=== PATIENT | male | born 1965 | race Caucasian/White ===

== ENCOUNTER 2020-02-28 09:11 | Emergency (ER) | payer BC ==
--- NOTE | 2020-02-28 09:51 | EDM.PDOC ---
ED HPI GENERAL MEDICAL PROBLEM - General Chief Complaint: Cardiovascular Problem Stated Complaint: CHEST PAIN OFF AND ON Time Seen by Provider: 02/28/20 09:43 Source of Information: Reports: Patient History Limitations: Reports: No Limitations - History of Present Illness INITIAL COMMENTS - FREE TEXT/NARRATIVE: 54-year-old male presents to the ED for evaluation of intermittent chest pains that he is been having off and on for the last couple of weeks. Last bout was about a week ago. It occurred at rest. Patient is very active in his job states he walks about 16,000 paces per day. At no time as he appreciated chest pressure discomfort with exertion. He reports having 95% occlusion of his left anterior descending coronary diagnosed coincidentally by cardiology at [place] 10 years ago. He therefore had 1 stent placed. He has a very strong family history of coronary artery disease. He states since that time he has been able to participate in all exercise programs including a Cross Fit program as well as running with his son when he gets home without development of chest discomfort. At the time he is seen in the ED he is not having any discomfort at all. Denies any shortness of breath or cough. No fever chills does be concerned for COVID illness. Currently working for [employer] here in [place]. ECG done by triage nurse shows sinus bradycardia at 54/min. Initial poor R wave progression giving some consideration to an old anteroseptal myocardial infarction. There is a diffuse early repolarization pattern. There is no signs of any ischemia. Patient reports he has been without his blood pressure medication for the last 7 to 10 days. His is sending it in the mail. He is unsure what it is. Onset Date: 02/14/20 (He said a few bouts of upper anterior chest pain at rest over the last 2 weeks.) Duration: Intermittent Location: Reports: Chest (Recurrent upper anterior chest pain at rest. History of coronary artery disease with 95% occlusion of left anterior descending artery requiring stent placement 10 years ago. No chest pains for at least 1 week.) Quality: Reports: Other (This pains are described as fleeting upper anterior chest lasting less than 3 minutes. They almost all occurred at rest.) Severity: Mild Improves with: Reports: Other (Chest pains always gone away on their own.) Worsens with: Reports: None Context: Reports: Other. Denies: Activity, Exercise, Lifting, Sick Contact, Trauma Associated Symptoms: Reports: No Other Symptoms (History of coronary disease.). 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 It is being sent per male by his . He hopes it will arrive on Sunday or Sunday next week. He cannot member what medication he takes for high blood pressure.), Stents (Patient had a stent placed 10 years ago in the left anterior descending coronary artery as it was 94% occluded. This was picked up as part of a screening exam for family history of coronary disease. He has not had a myocardial infarction) Gastrointestinal History: Reports: GERD (Occasional reflux and heartburn but quite rare.) Musculoskeletal History: Reports: Fracture (Cervical spine with fusion he believes at C6 and C7.), Neck Pain, Chronic (Mild.) Oncologic (Cancer) History: Reports: Thyroid (Discovered to have thyroid cancer coincidentally when he had CT scan of his cervical spine after injury. Initial needle biopsy was negative. However he was feeling a pressure on his windpipe when he exercised and therefore surgery was performed. During surgery pathology reported malignancy and therefore the entire thyroid gland was removed.) - Past Surgical History Endocrine Surgical History: Reports: Thyroidectomy (Found to have a cancer in his thyroid coincidentally when he had CT of his cervical spine after injury. Initial needle biopsies were negative. However during surgery discovered to have a cancer of the thyroid and the whole thyroid was then removed.) Neurological Surgical History: Reports: C-Spine (C-spine fusion he believes at C6 and C7 levels.) Social & Family History - Tobacco Use Smoking Status *Q: Former Smoker (Quit 20 years ago.) Tobacco Use Within Last Twelve Months: Cigarettes - Living Situation & Occupation Living situation: Reports: Occupation: Employed Social History Comment: Currently works for [employer] here in [place]. He is home is in [facility]. ED ROS GENERAL - Review of Systems Review Of Systems: See Below Constitutional: Denies: Fever, Chills, Malaise, Weakness, Fatigue, Decreased Appetite, Weight Loss HEENT: Reports: No Symptoms Respiratory: Denies: Shortness of Breath, Wheezing, Pleuritic Chest Pain, Cough Cardiovascular: Reports: Chest Pain (Remittent upper anterior central chest pains the last few weeks usually at rest.), Blood Pressure Problem. Denies: Claudication (Chronic hypertension), Dyspnea on Exertion, Edema, Lightheadedness, Orthopnea, Palpitations Endocrine: Reports: No Symptoms GI/Abdominal: Reports: No Symptoms : Reports: Other (Urinary stream is not as good as it used to be.) Musculoskeletal: Reports: Neck Pain (Patient has had previous cervical spine fusion. Reports a stiff neck at times.) Skin: Reports: No Symptoms Neurological: Reports: No Symptoms Psychiatric: Reports: No Symptoms Hematologic/Lymphatic: Reports: No Symptoms ED EXAM, GENERAL - Physical Exam Exam: See Below Exam Limited By: No Limitations General Appearance: Alert, WD/WN, No Apparent Distress, Other (Temperature is 37.1. Heart rate was 57 and sinus bradycardia the monitor. Respiratory of 16 with O2 sats 100% room air. Blood pressure elevated 1 6784. However when I went in the room his blood pressure was 160/104 ) Eye Exam: Bilateral Eye: Normal Inspection, PERRL Throat/Mouth: Normal Lips, Normal Teeth Head: Atraumatic, Normocephalic Neck: Normal Inspection, Limited Range of Motion (Well-healed midline cervical spine scar.), Other (Evidence of previous thyroidectomy with scar anterior neck.). No: Full Range of Motion, Carotid Bruit, Lymphadenopathy (R) Respiratory/Chest: No Respiratory Distress, Lungs Clear, Normal Breath Sounds, No Accessory Muscle Use Cardiovascular: Normal Peripheral Pulses, Regular Rate, Rhythm, No Edema, No Murmur, No Rub Peripheral Pulses: 2+: Posterior Tibial (L), Posterior Tibial (R), Dorsalis Pedis (L), Dorsalis Pedis (R), 3+: Carotid (L), Carotid (R) GI/Abdominal: Normal Bowel Sounds, Soft, Non-Tender, No Organomegaly, No Abnormal Bruit, No Mass, Pelvis Stable (Male) Exam: No Hernia Back Exam: Normal Inspection, Full Range of Motion. No: CVA Tenderness (L), CVA Tenderness (R) Extremities: Normal Inspection, Normal Range of Motion, Non-Tender, No Pedal Edema Neurological: Alert, Oriented, CN II-XII Intact, Normal Cognition Psychiatric: Normal Affect, Normal Mood Skin Exam: Warm, Dry, Intact, Normal Color, No Rash EKG INTERPRETATION EKG Date: 02/28/20 Time: 09:31 Rhythm: Other (Sinus bradycardia) Rate (Beats/Min): 54 Myrtle: Normal P-Wave: Present (P wave inverted V1 and V2 nonspecific finding) QRS: Other (Initial poor R wave progression consider possible old anteroseptal myocardial infarction.) ST-T: Other (Diffuse early repolarization pattern.) QT: Normal EKG Interpretation Comments: Borderline ECG. No signs of ischemia. Course - Vital Signs Last Recorded V/S: Last Vital Signs Temp 37.1 C 02/28/20 09:28 Pulse 57 L 02/28/20 09:28 Resp 16 02/28/20 09:28 BP 167/84 H 02/28/20 09:28 Pulse Ox 100 02/28/20 09:28 - Orders/Labs/Meds Orders: Active Orders 24 hr Category Date Time Status EKG 12 Lead [EKG Documentation Completion] [RC] STAT Care 02/28/20 09:37 Active Labs: Laboratory Tests 02/28/20 02/28/20 02/28/20 Range/Units 10:33 10:33 10:33 WBC 5.77 (4.23-9.07) K/mm3 RBC 4.99 (4.63-6.08) M/mm3 Hgb 14.3 (13.7-17.5) gm/dl Hct 42.9 (40.1-51.0) % MCV 86.0 (79.0-92.2) fl MCH 28.7 (25.7-32.2) pg MCHC 33.3 (32.2-35.5) g/dl RDW Std Deviation 41.2 (35.1-43.9) fL Plt Count 212 (163-337) K/mm3 MPV 9.4 (9.4-12.3) fl Neut % (Auto) 52.9 (34.0-67.9) % Lymph % (Auto) 36.6 (21.8-53.1) % Cocke % (Auto) 7.6 (5.3-12.2) % Eos % (Auto) 2.4 (0.8-7.0) Baso % (Auto) 0.3 (0.1-1.2) % Neut # (Auto) 3.05 (1.78-5.38) K/mm3 Lymph # (Auto) 2.11 (1.32-3.57) K/mm3 Cocke # (Auto) 0.44 (0.30-0.82) K/mm3 Eos # (Auto) 0.14 (0.04-0.54) K/mm3 Baso # (Auto) 0.02 (0.01-0.08) K/mm3 Sodium 134 L (136-145) mEq/L Potassium 4.1 (3.5-5.1) mEq/L Chloride 101 (98-107) mEq/L Carbon Dioxide 21 (21-32) mEq/L Anion Gap 16.1 H (5-15) BUN 19 H (7-18) mg/dL Creatinine 1.0 (0.7-1.3) mg/dL Est Cr Clr Drug Dosing 89.94 mL/min Estimated GFR (MDRD) > 60 (>60) mL/min BUN/Creatinine Ratio 19.0 H (14-18) Glucose 118 H (74-106) mg/dL Calcium 8.3 L (8.5-10.1) mg/dL Magnesium 1.9 (1.8-2.4) mg/dl Total Bilirubin 0.4 (0.2-1.0) mg/dL AST 16 (15-37) U/L ALT 50 (16-63) U/L Alkaline Phosphatase 58 (46-116) U/L Troponin I < 0.017 (0.00-0.056) ng/mL C-Reactive Protein <0.2 (<1.0) mg/dL NT-Pro-B Natriuret Pep 7 (0-125) pg/mL Total Protein 6.9 (6.4-8.2) g/dl Albumin 3.5 (3.4-5.0) g/dl Globulin 3.4 gm/dL Albumin/Globulin Ratio 1.0 (1-2) Meds: Medications Discontinued Medications Generic Name Dose Route Start Last Admin Trade Name Kriss PRN Reason Stop Dose Admin Amlodipine Besylate 10 mg 02/28/20 11:51 Norvasc PO 02/28/20 11:52 ONETIME ONE - Radiology Interpretation Free Text/Narrative:: 54-year-old male presents to the ED for evaluation of intermittent chest pains usually occurring at rest over the last couple of weeks. Last bout was about a week ago. Patient has had a previous stent placed in his left anterior descending coronary 10 years ago due to 95% blockage appreciated on angiogram. This was done because of a strong family history of heart disease. He never had a myocardial infarction. He is quite active in his job and has no chest pressure or pain on exertion. Does have primary hypertension and is currently out of his medicines for the last 10 days. Blood pressure is elevated at 164/ 104. Does get occasional heartburn. Does not usually need Tums or Rolaids. Examination I could find no abnormalities on evaluation of carotids. Chest is clear heart was sinus bradycardia and ECG shows initial poor R wave progression V1 V2 giving some consideration of possible old anteroseptal myocardial infar ction. Clinically he does have left atrial hypertrophy likely due to blood pressure not being all that well controlled. Plan he will have a chest x-ray and routine labs including cardiac markers done. However by history he does not appear to be suffering angina. - Re-Assessments/Exams Free Text/Narrative Re-Assessment/Exam: 02/28/20 10:23 portable chest x-ray is within normal limits showing no obvious cardiomegaly and clear lung carias. Evidence of hardware in the lower cervical spine from previous fusion surgery. No evidence of metastatic disease to the lungs from previous thyroid cancer. 02/28/20 11:16 . Sodium is 134 and potassium is 4.1. Chloride 101 with a bicarb of 21. Anion gap is 16.1. BUN is 19. Creatinine 1.0 with a GFR greater than 60. Glucose 118 with a calcium of 8.3. Magnesium 1.9. Liver function normal. Troponin I less than 0.017. C-reactive protein less than 0.2. BNP of 7. Total protein 6.9 with an albumin fraction of 3.5 02/28/20 11:57 Blood pressure has remained elevated during his stay in the ED with diastolic being anywhere from 119-103. Systolics have been 160-170. I am going to give the patient amlodipine 10 mg by mouth now and a prescription for the same medication to take until his medication arrives from [place]. Given copies of his records today to forward to his bell captain. Departure - Departure Time of Disposition: 11:51 Disposition: Home, Self-Care 01 Reason for Transfer *Q: Other Condition: Good Clinical Impression: Non-cardiac chest pain, Uncontrolled hypertension Prescriptions: amLODIPine [Norvasc] 10 mg PO DAILY #10 tablet Referrals: PCP,Not In Area [Primary Care Provider] - Forms: ED Department Discharge Additional Instructions: Evaluation in the emergency room today in regards to intermittent upper anterior chest pains that you have experienced over the last few weeks. By history they have all occurred at rest. You are fairly active with walking on a daily basis without chest pain development. History of coronary disease with 95% occlusion of the left anterior descending coronary artery 10 years ago requiring a stent placement without evidence of heart attack. ECG today shows a sinus bradycardia which means heart rate is in the lower range of normal. Chest x-ray is normal. Lab tests proved negative for any signs of heart related illness. Your blood pressure however remained elevated throughout her emergency room stay with the lower number always above 100 and as high as 119 at times. Suggest use of amlodipine 10 mg once daily which was started in the ED today. Use this medication once daily until your medication arrives from [place]. Then resume your blood pressure medication and continue to follow-up on blood pressure readings 2 to try to 3 times weekly. Copies of your records were provided to you to send to your bell captain in [place]. Sepsis Event Note (ED) - Evaluation Sepsis Screening Result: No Definite Risk - Focused Exam Vital Signs: Vital Signs Temp Pulse Resp BP Pulse Ox 02/28/20 09:28 37.1 C 57 L 16 167/84 H 100 - My Orders Last 24 Hours: My Active Orders 02/28/20 09:37 EKG 12 Lead [EKG Documentation Completion] [RC] STAT - Assessment/Plan Last 24 Hours: My Active Orders 02/28/20 09:37 EKG 12 Lead [EKG Documentation Completion] [RC] STAT
--- NOTE | 2020-02-28 11:49 | CR ---
Chest: Portable view of the chest was obtained. Comparison: No prior chest imaging is available. Heart size and mediastinum are normal. Lungs are clear with no acute parenchymal change. Prior cervical spine surgery is noted. Impression: 1. Nothing acute is seen on portable chest x-ray. Diagnostic code #2 This report was dictated in MDT
[2020-02-28] MEDS ORDERED: amLODIPine 10 MG Tab PO ONE (11:51)
== END 2020-02-28 12:14 | disposition home or self-care (01) ==
LOC: JD.ED 09:11
DX: R07.89 Other chest pain (principal); I10 Essential (primary) hypertension; R00.1 Bradycardia, unspecified; I25.10 Atherosclerotic heart disease of native coronary artery without angina pectoris; Z95.5 Presence of coronary angioplasty implant and graft; Z87.891 Personal history of nicotine dependence; Z79.899 Other long term (current) drug therapy
CPT/HCPCS: 36415; 71045; 80053; 83735; 83880; 84484; 85025; 86140; 93005; 99285; A9270; 93010; 99283